=== PATIENT | male | born 1970 | race Caucasian/White ===

== ENCOUNTER 2021-02-13 09:37 | Emergency (ER) | payer OTHER ==
[2021-02-13] MEDS ORDERED: Lidocaine 2% 100 MG/5 ML Syringe ONE (10:08)
--- NOTE | 2021-02-13 10:21 | EDM.PDOC ---
ED HPI GENERAL MEDICAL PROBLEM - General Chief Complaint: Upper Extremity Injury/Pain Stated Complaint: FISH HOOK RIGHT THUMB Time Seen by Provider: 02/13/21 10:00 Source of Information: Reports: Patient History Limitations: Reports: No Limitations - History of Present Illness INITIAL COMMENTS - FREE TEXT/NARRATIVE: fishhook to right thumb Onset: Sudden Duration: Hour(s): (1) Review of Systems - Review of Systems Review Of Systems: See Below Constitutional: Reports: No Symptoms Eyes: Reports: No Symptoms Respiratory: Reports: No Symptoms Cardiovascular: Reports: No Symptoms GI/Abdominal: Reports: No Symptoms Musculoskeletal: Reports: No Symptoms ED EXAM, GENERAL - Physical Exam Exam: See Below Exam Limited By: No Limitations General Appearance: Alert, WD/WN, No Apparent Distress Eye Exam: Bilateral Eye: PERRL Respiratory/Chest: No Respiratory Distress Cardiovascular: Normal Peripheral Pulses, Regular Rate, Rhythm Neurological: Alert, Oriented, No Motor/Sensory Deficits Course - Vital Signs Last Recorded V/S: Last Vital Signs Temp 36.6 C 02/13/21 09:47 Pulse 63 02/13/21 09:47 Resp 16 02/13/21 09:47 BP 131/76 02/13/21 09:47 Pulse Ox - Orders/Labs/Meds Meds: Medications Discontinued Medications Generic Name Dose Route Start Last Admin Trade Name Mykel PRN Reason Stop Dose Admin Lidocaine HCl Confirm 02/13/21 10:08 Lidocaine 2% 100 Mg/5 Ml Syringe Administered 02/13/21 10:09 Dose 100 mg .ROUTE .STK-MED ONE - Re-Assessments/Exams Free Text/Narrative Re-Assessment/Exam: fishhook to right thumb was removed after applying local anesthesia. no complications local antibiotic was applied and a sterile dressing Departure - Departure Time of Disposition: 10:20 Disposition: Home, Self-Care 01 Condition: Good Clinical Impression: Fish hook injury of right thumb Qualifiers: Encounter type: initial encounter Qualified Code(s): S69.91XA - Unspecified injury of right wrist, hand and finger(s), initial encounter - Discharge Information *PRESCRIPTION DRUG MONITORING PROGRAM REVIEWED*: Not Applicable *COPY OF PRESCRIPTION DRUG MONITORING REPORT IN PATIENT STEPHANY: Not Applicable Instructions: Skin Foreign Body Referrals: PCP,None [Primary Care Provider] - Forms: ED Department Discharge Additional Instructions: - apply antibiotics ointment on the wound once daily - keep wound dry and clean - call the ER if any symptoms of wound infection Sepsis Event Note (ED) - Evaluation Sepsis Screening Result: No Definite Risk - Focused Exam Vital Signs: Vital Signs Temp Pulse Resp BP 02/13/21 09:47 36.6 C 63 16 131/76 - Problem List & Annotations (1) Fish hook injury of right thumb SNOMED Code(s): 172605128 Code(s): S69.91XA - UNSP INJURY OF RIGHT WRIST, HAND AND FINGER(S), INIT ENCNTR Status: Acute Priority: Low Qualifiers: Encounter type: initial encounter Qualified Code(s): S69.91XA - Unspecified injury of right wrist, hand and finger(s), initial encounter - Problem List Review Problem List Initiated/Reviewed/Updated: Yes - Assessment/Plan Plan: - apply antibiotics ointment on the wound once daily - keep wound dry and clean - call the ER if any symptoms of wound infection
== END 2021-02-13 10:24 | disposition home or self-care (01) ==
LOC: LB.ED 09:37
DX: S60.351A Superficial foreign body of right thumb, initial encounter (principal); W45.8XXA Other foreign body or object entering through skin, initial encounter
CPT/HCPCS: 99283